=== PATIENT | female | born 2000 | race Caucasian/White ===

== ENCOUNTER 2024-01-28 23:05 | Emergency (ER) | payer OTHER, SELFPAY ==
[2024-01-28 23:14] VITALS: BP 98/62
[2024-01-28 23:41] VITALS: BMI 18.7
--- NOTE | 2024-01-28 23:42 | ED.GENMED ---
History of Present Illness
General
Chief Complaint: Alcohol Problem
Source: patient and spouse
Exam Limitations: none
Time Seen by Provider: 01/28/24 23:32
Nursing documentation reviewed up to this point in time: agreed with
Travel History
Have you had any contact with someone who has COVID-19?: No
Do you have any symptoms of coronavirus? Fever > 100 degrees, chills, cough, shortness of breath, sore throat, loss of taste or smell, muscle aches, or headache?: No
History of Present Illness
History of Present Illness:
24-year-old female presents emergency department due to vomiting after drinking too much alcohol while out to dinner. She was out to dinner with her father, and began vomiting and did not feel well, asked to be brought to the hospital.
Past History
Past History
ED Past Medical History: Hypothyroidism
ED Past Surgical History: Other (Throat surgery)
Social History
Tobacco: Non-smoker
Alcohol: Binge drinker
Drug: None
Personal:
Living: with family
Review of Systems
Review of Systems
Allergies reviewed?: Yes
All Other Systems: Not applicable
Constitutional: Reports no symptoms
EENT: Reports no symptoms
Respiratory: Reports no symptoms
Cardiac: Reports no symptoms
ABD/GI: Reports vomiting
: Reports no symptoms
Musculoskeletal: Reports no symptoms
Skin: Reports no symptoms
Neurological: Reports no symptoms
Endocrine: Reports no symptoms
Hematologic/Lymphatic: Reports no symptoms
Phy Exam
Physical Exam
Physical Exam:
Physical Exam
General: Intoxicated, appears uncomfortable, afebrile
Neck: supple. no meningeal signs. normal posterior pharynx
Heart: s1/s2 regular rate and rhythm, no murmur. equal radial
pulses.
HEENT: Pupils equal round reactive to light, EOMI
Lungs: no acute respiratory distress. clear bilaterally
Abdomen: normal bowel sounds. not tender. no CVAT
Neuro: alert and oriented. no focal neurological deficits cranial nerves II through XII intact
Skin: no rash
Psychiatric: well kept. interactive and cooperative
Extremities: no edema. no calf tenderness. negative homans. good distal pulses
Scores
Withdrawal Assessment of Alcohol
Withdrawal Assessment Completed?: Not applicable
Course
Orders/Labs/Results
Orders:
Orders
01/28/24 23:41
Cardiac Monitoring- Treatment ONCE
IV Insert/Care/Rem.- Treatment PRN
0.9% Sodium Chloride 1000 ml [Nss] 1,000 ml IV BOLUS
Test Result ONCE
Pulse Ox/cont/shift [RESP] Stat
Quantity: 1
01/28/24 23:42
Electrocardiogram (*1) Stat
Reason for Study: QTc Monitoring
Electrocardiogram (*1) Urgent
Reason for Study: QTc Monitoring
EKG- Treatment ONCE
01/28/24 23:48
Alcohol Urgent
Complete Blood Count/With Diff Urgent
Comprehensive Metabolic Panel Urgent
HCG, Serum Qualitative Screen Urgent
01/28/24 23:54
Ondansetron Injectable [Zofran] 4 mg IV NOW STA
Abnormal Lab Results
01/28/24
23:48
Chloride 112 H mmol/L
(98-107)
Creatinine 0.5 L mg/dL
(0.6-1.0)
Glucose 109 H mg/dl
(70-99)
01/28/24 23:48
01/28/24 23:48
Vital Signs
Initial and Last Documented VS:
Initial Vital Signs
Temp Pulse Resp BP Pulse Ox
97.6 F 74 22 98/62 98
01/28/24 23:14 01/28/24 23:14 01/28/24 23:14 01/28/24 23:14 01/28/24 23:14
Last Documented Vital Signs
Temp Pulse Resp BP Pulse Ox
97.6 F 90 23 107/65 94
01/28/24 23:14 01/29/24 02:00 01/29/24 02:00 01/29/24 02:00 01/29/24 02:00
MDM/Problems Addressed
Differential Diagnosis Includes:
Alcohol intoxication, aspiration
MDM/Problems Addressed:
24-year-old female with alcohol intoxication. Vital signs stable. Improved after IV fluids and Zofran. Stable for discharge. Patient declines drug and alcohol counseling.
*Pulse Oximetry
Patient hypoxic: no
*EKG
Interpreted by ED Provider?: Yes
EKG Intrepretation Date: 01/29/24
EKG Intrepretation Time: 23:51
Interpretation: normal
Comparison EKG: no comparison EKG present
Heart Rate: 71
Rate: normal
Rhythm: sinus
[place]: normal axis
Interval: normal interval
QRS Pattern: normal QRS
Ischemia: no ischemia
*Tomographic Tech Interpretation
Rate: normal
Interpretation: normal
Heart Rate: 70
Rhythm: sinus
*Critical Care Note
Total Time (30-74mins, 75-104mins- exclusive of procedures): Not Applicable
Patient Management
Social determinants of health affecting care: Living situation and Substance abuse (alcohol abuse)
Escalation/DeEscalation of care consider admission/obs:
admit not indicated
ED Attending Note
-
Portions of this chart may have been created with voice recognition software.� Occasional wrong word or��sound alike� substitutions may have occurred due to the inherent limitations of voice recognition software.
Discharge Plan
Departure
Patient Disposition: Home (Routine Discharge)
Date of Disposition: 01/29/24
Time of Disposition: 02:21
Patient with high blood pressure during this ER visit?: No
Condition: Good
Discharge Problem:
Alcohol intoxication
Instructions: Alcohol Intoxication ED
Prescriptions:
No Action
Unobtainable
0
Referrals:
NONE,* [Family Provider] -
Activity Restrictions/Additional Instructions:
Return for any concerns. Follow-up with primary care.
Interventions
Interventions:
*Risk Screen - Suicide Last Done: 01/28/24 23:14
*General Assessment Last Done: 01/29/24 01:15
*Neglect/Abuse Screening Last Done: 01/28/24 23:14
ED- Fall Risk Assessment Last Done: 01/28/24 23:41
*ED COVID-19 Vaccine History Last Done: 01/28/24 23:41
ED- Neurological Assessment Last Done: 01/28/24 23:41
ED-Psychological Assessment Last Done: 01/28/24 23:41
Discharge Date and Time
Print Language: BRUNEIAN
[2024-01-28] MEDS: NSS 1000 IV (23:45)
[2024-01-28 23:47] VITALS: BP 103/62
[2024-01-28 23:55] LABS: % Eosinophils 1.2 % (0-6); % Immature Granulocytes 0.2 % (0-0.5); % Lymphocytes 24.4 % (20.5-51.1); % Monocytes 4.2 % (1.7-9.3); Absolute Basophils 0.1 10^3/uL (0-0.2); Absolute Eosinophils 0.1 10^3/uL (0-0.7); Absolute Lymphocytes 1.2 10^3/uL (1.2-3.4); Absolute Monocytes 0.2 10^3/uL (0.1-0.6); Absolute Neutrophils 3.5 10^3/uL (1.4-6.5); Hematocrit 39.5 % (37.0-47.0); Mean Corp Hgb Conc. 35.4 g/dL (33.0-37.0); Mean Corpuscular Hgb 30.6 pg (27.0-31.0); Mean Corpuscular Volume 86.4 fL (81.0-99.0); Nucleated Red Blood Cells % 0 %; Platelet Count 220 10^3/uL (130-400); Red Blood Cell Count 4.57 10^6/uL (4.20-5.40); Red Cell Dist. Width 12.2 % (11.5-14.5)
[2024-01-29] VITALS: BP 103/66
[2024-01-29] MEDS: ZOFRAN 4 MG IV
[2024-01-29 00:09] LABS: HCG, Serum Qualitative Screen Negative
[2024-01-29 00:18] LABS: ALT (SGPT) 21 U/L (0-35); AST (SGOT) 22 U/L (14-36); Albumin 4.6 g/dl (3.5-5.0); Alcohol 237 mg/dl; Alkaline Phosphatase 46 U/L (38-126); Blood Urea Nitrogen 13 mg/dl (7-17); Calcium 9.2 mg/dl (8.4-10.2); Carbon Dioxide 22 mmol/L (22-30); Chloride 112 mmol/L (98-107); Estimated Creatinine Clearance 114 ml/min; Glucose 109 mg/dl (70-99); Sodium 143 mmol/L (135-145); Total Bilirubin 0.8 mg/dl (0.2-1.3); Total Protein 7.3 g/dl (6.3-8.2); eGFR > 60.00
[2024-01-29 01:00] VITALS: BP 88/58
[2024-01-29 02:00] VITALS: BP 107/65
== END 2024-01-29 02:29 | disposition home or self-care (01) ==
LOC: EMR 23:05
PROVIDERS: EMERGENCY PHYSICIAN Emergency Medicine
DX: F10.129 Alcohol abuse with intoxication, unspecified (principal)
CPT/HCPCS: 99284; 96374; 96361; 80053; 82077; 84703; 85025; 93005